=== PATIENT | male | born 1950 | race Caucasian/White ===

== ENCOUNTER → 2016-08-13 | Outpatient (CLI) | payer OTHER ==
--- NOTE | 2016-08-13 13:33 | DIAGNOSTIC IMAGING REPORT ---
CHEST 2 VIEWS ROUTINE HISTORY: Pre-MRI screening *PT HAS 3 LEAD PACEMAKER* L SHOULDER PAIN, PT TO MRI AFTER COMPARISON: None. FINDINGS: The lungs are clear. The heart is borderline enlarged. No pleural effusions. No pneumothorax. There is a left-sided pacemaker/defibrillator with 3 intact leads. There are no pacemaker leads identified. IMPRESSION: A left-sided pacemaker/defibrillator with 3 intact leads. Electronically signed by: Reji Light M.D. 08/13/2016 1:32 PM Dictated Date/Time: 08/13/2016 1:29 PM
[2016-08-13 13:45] VITALS: BP 135/77; PULSE 68; O2SAT 97
[2016-08-13 15:15] VITALS: BP 106/71; PULSE 90; O2SAT 97
--- NOTE | 2016-08-13 15:38 | DIAGNOSTIC IMAGING REPORT ---
MRI OF THE LEFT SHOULDER WITHOUT CONTRAST CLINICAL HISTORY: Left shoulder pain. Evaluate for rotator cuff tear. Patient with MRI compatible pacemaker. COMPARISON STUDY: No previous studies for comparison. TECHNIQUE: Utilizing a 1.5 Catarina magnet and dedicated coil, multiplanar, multiecho imaging of the left shoulder was performed without intravenous or intra-articular contrast according to protocol for MRI compatible pacemaker. FINDINGS: This exam is moderately compromised by artifact related to the pacemaker. However, a large full-thickness tear of the majority of supraspinatus is noted with approximately 2.2 cm of tendon retraction and muscular atrophy. There is no full-thickness tear of infraspinatus. Subscapularis is suboptimally assessed on this exam. Teres minor appears intact. The glenoid labrum is suboptimally assessed but appears truncated. There is moderate to severe arthritis of the acromioclavicular joint and moderate arthritis of the glenohumeral joint. No mass or fluid collection shown adjacent to the left shoulder. There is fluid within the subacromial/subdeltoid bursa. There is no suspicious marrow replacement. There is no significant marrow edema. The long head of biceps tendon is suboptimally assessed on this exam but is grossly intact. There is no full-thickness tear. IMPRESSION: 1. Large full-thickness tear of supraspinatus with tendon retraction and muscular atrophy. 2. Exam compromised by susceptibility artifact related to the pacemaker. 3. 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 4. Truncated glenoid labrum. Electronically signed by: Tom Foote M.D. 08/13/2016 3:37 PM Dictated Date/Time: 08/13/2016 3:30 PM
== END | disposition home or self-care (01) ==
LOC: C.MRI 13:07
PROVIDERS: ATTEND Orthopaedic Surgery
DX: G89.29 Other chronic pain (principal); M19.012 Primary osteoarthritis, left shoulder; S43.82XA Sprain of other specified parts of left shoulder girdle, initial encounter; X58.XXXA Exposure to other specified factors, initial encounter; Z95.0 Presence of cardiac pacemaker